=== PATIENT | female | born 1950 | race Caucasian/White ===

== ENCOUNTER → 2016-02-16 | Outpatient (CLI) | payer OTHER ==
--- NOTE | 2016-02-17 09:37 | MM ---
Reason for exam: screening (asymptomatic). Last mammogram was performed 1 year and 2 months ago. History: Patient is postmenopausal, has history of high-risk lesion on a previous biopsy at age 59, and is nulliparous. Family history of breast cancer in paternal grandmother at age 70. Benign left breast needle localization of the left breast, August 29, 2010. Benign left breast needle localization of the left breast, August 29, 2010. High risk left mammotome panel of the left breast, August 12, 2010. High risk left mammotome panel of the left breast, July 13, 2010. Took hormonal contraceptives for 1 month beginning at age 39. Physical Findings: A clinical breast exam by your physician is recommended on an annual basis and results should be correlated with mammographic findings. MG Screening Mammo w CAD Bilateral CC and MLO view(s) were taken. Prior study comparison: December 02, 2014, bilateral MG screening mammo w CAD. September 30, 2013, bilateral MG screening mammo w CAD. July 16, 2012, CAD bilateral diagnostic mammogram. June 22, 2010, bilateral digital screening mammo w/CAD. There are scattered fibroglandular densities. Some post surgical deformity along the inferior medial left breast. No significant changes when compared with prior studies. ASSESSMENT: Negative, BI-RAD 1 RECOMMENDATION: Routine screening mammogram of both breasts in 1 year.
== END ==
LOC: RADMAMWWP 16:46
PROVIDERS: ATTEND Internal Medicine
DX: Z12.31 Encounter for screening mammogram for malignant neoplasm of breast (principal)

== ENCOUNTER → 2017-04-26 | Outpatient (CLI) | payer OTHER ==
--- NOTE | 2017-04-27 13:38 | MM ---
Reason for exam: screening (asymptomatic). Last mammogram was performed 1 year and 2 months ago. History: Patient is postmenopausal, has history of high-risk lesion on a previous biopsy at age 59, and is nulliparous. Family history of breast cancer in paternal grandmother at age 70. Benign left breast needle localization of the left breast, August 29, 2010. Benign left breast needle localization of the left breast, August 29, 2010. High risk left mammotome panel of the left breast, August 12, 2010. High risk left mammotome panel of the left breast, July 13, 2010. Took hormonal contraceptives for 1 month beginning at age 39. Physical Findings: A clinical breast exam by your physician is recommended on an annual basis and results should be correlated with mammographic findings. MG Screening Mammo w CAD Bilateral CC and MLO view(s) were taken. Prior study comparison: February 16, 2016, bilateral MG screening mammo w CAD. December 02, 2014, bilateral MG screening mammo w CAD. There are scattered fibroglandular densities. No significant changes when compared with prior studies. ASSESSMENT: Benign, BI-RAD 2 RECOMMENDATION: Routine screening mammogram of both breasts in 1 year.
== END ==
LOC: RADMAMWWP 15:12
PROVIDERS: ATTEND Internal Medicine
DX: Z12.31 Encounter for screening mammogram for malignant neoplasm of breast (principal)
CPT/HCPCS: 77067

== ENCOUNTER → 2017-09-03 | Outpatient (CLI) | payer BC, OTHER ==
--- NOTE | 2017-09-03 13:40 | XR ---
EXAMINATION TYPE: XR chest 2V DATE OF EXAM: 09/03/2017 COMPARISON: 03/22/2015 TECHNIQUE: PA and lateral views submitted. HISTORY: Fever FINDINGS: The lungs are clear and there is no pneumothorax, pleural effusion, or focal pneumonia. Hyperinflat ion lungs. Hypertrophic and degenerative change of the spine with scoliotic curvature. Calcification right hilum stable. No overt failure IMPRESSION: 1. No acute process.
--- NOTE | 2017-09-03 13:58 | US ---
EXAMINATION TYPE: US kidneys/renal and bladder DATE OF EXAM: 09/03/2017 COMPARISON: NONE CLINICAL HISTORY: R31.9 Hematuria. Intermittent right flank pain, microscopic hematuria EXAM MEASUREMENTS: Right Kidney: 10.6 x 3.6 x 5.1 cm Left Kidney: 11.2 x 4.7 x 5.2 cm Right Kidney: no evidence of hydronephrosis Left Kidney: no evidence of hydronephrosis Bladder: appear wnl Bilateral Jets seen: yes There is no evidence for hydronephrosis at this point in time. No nephrolithiasis is seen. No patricia s are identified. The urinary bladder is anechoic. Bilateral ureteral jets are seen. IMPRESSION: Unremarkable study. If symptoms persist consider CT urogram evaluation.
== END | disposition home or self-care (01) ==
LOC: RADUSWWP 12:42
PROVIDERS: ATTEND Internal Medicine
DX: R31.9 Hematuria, unspecified (principal); R50.9 Fever, unspecified
CPT/HCPCS: 71046; 76770

== ENCOUNTER → 2018-05-07 | Outpatient (CLI) | payer MEDICARE, BC ==
--- NOTE | 2018-05-09 11:34 | MM ---
Reason for exam: screening (asymptomatic). Last mammogram was performed 1 year ago. History: Patient is postmenopausal, has history of high-risk lesion on a previous biopsy at age 59, and is nulliparous. Family history of breast cancer in paternal grandmother at age 70. Benign left breast needle localization of the left breast, August 29, 2010. Benign left breast needle localization of the left breast, August 29, 2010. High risk left mammotome panel of the left breast, August 12, 2010. High risk left mammotome panel of the left breast, July 13, 2010. Took hormonal contraceptives for 1 month beginning at age 39. Physical Findings: A clinical breast exam by your physician is recommended on an annual basis and results should be correlated with mammographic findings. MG 3D Screening Mammo W/Cad Bilateral CC and MLO view(s) were taken. Prior study comparison: April 26, 2017, bilateral MG screening mammo w CAD. February 16, 2016, bilateral MG screening mammo w CAD. No significant changes when compared with prior studies. ASSESSMENT: Benign, BI-RAD 2 RECOMMENDATION: Routine screening mammogram of both breasts in 1 year.
== END | disposition home or self-care (01) ==
LOC: RADMAMWWP 11:11
PROVIDERS: ATTEND Internal Medicine
DX: Z12.31 Encounter for screening mammogram for malignant neoplasm of breast (principal)
CPT/HCPCS: 77063; 77067

== ENCOUNTER → 2019-10-27 | Outpatient (CLI) | payer MEDICARE ==
--- NOTE | 2019-10-29 09:43 | MM ---
Reason for exam: screening (asymptomatic). Last mammogram was performed 1 year and 6 months ago. History: Patient is postmenopausal, has history of high-risk lesion on a previous biopsy at age 59, and is nulliparous. Family history of breast cancer in paternal grandmother at age 70. Benign left breast needle localization of the left breast, August 29, 2010. Benign left breast needle localization of the left breast, August 29, 2010. High risk left mammotome panel of the left breast, August 12, 2010. High risk left mammotome panel of the left breast, July 13, 2010. Took hormonal contraceptives for 1 month beginning at age 39. Physical Findings: A clinical breast exam by your physician is recommended on an annual basis and results should be correlated with mammographic findings. MG Screening Mammo w CAD Bilateral CC and MLO view(s) were taken. Prior study comparison: May 07, 2018, bilateral MG 3d screening mammo w/cad. April 26, 2017, bilateral MG screening mammo w CAD. There are scattered fibroglandular densities. Focal asymmetry left breast. No significant changes when compared with prior studies. ASSESSMENT: Benign, BI-RAD 2 RECOMMENDATION: Routine screening mammogram of both breasts in 1 year.
== END | disposition home or self-care (01) ==
LOC: RADMAMWWP 11:20
PROVIDERS: ATTEND Internal Medicine
DX: Z12.31 Encounter for screening mammogram for malignant neoplasm of breast (principal)
CPT/HCPCS: 77067

== ENCOUNTER → 2020-11-02 | Outpatient (CLI) | payer MEDICARE ==
--- NOTE | 2020-11-04 11:36 | MM ---
Reason for exam: screening (asymptomatic). Last mammogram was performed 1 year ago. History: Patient is postmenopausal, has history of high-risk lesion on a previous biopsy at age 59, and is nulliparous. Family history of breast cancer in paternal grandmother at age 70. Benign left breast needle localization of the left breast, August 29, 2010. Benign left breast needle localization of the left breast, August 29, 2010. High risk left mammotome panel of the left breast, August 12, 2010. High risk left mammotome panel of the left breast, July 13, 2010. Took hormonal contraceptives for 1 month beginning at age 39. Physical Findings: A clinical breast exam by your physician is recommended on an annual basis and results should be correlated with mammographic findings. MG Screening Mammo w CAD Bilateral CC, MLO, and XCCL view(s) were taken. Prior study comparison: October 27, 2019, bilateral MG screening mammo w CAD. May 07, 2018, bilateral MG 3d screening mammo w/cad. Focal asymmetry left upper outer quadrant, stable. No significant changes when compared with prior studies. ASSESSMENT: Benign, BI-RAD 2 RECOMMENDATION: Routine screening mammogram of both breasts in 1 year.
== END | disposition home or self-care (01) ==
LOC: RADMAMWWP 15:29
PROVIDERS: ATTEND Internal Medicine
DX: Z12.31 Encounter for screening mammogram for malignant neoplasm of breast (principal)
CPT/HCPCS: 77067

== ENCOUNTER → 2021-02-22 | Outpatient (CLI) | payer MEDICARE ==
--- NOTE | 2021-02-22 15:05 | XR ---
EXAM TYPE: LUMBAR SPINE X RAY SERIES COMPARISON: NONE HISTORY: Pain TECHNIQUE: 4 views are submitted. FINDINGS: Alignment is anatomic. The pedicles are intact. Diffuse osteopenia with a mild to moderate superior endplate compression fracture L3. Facet arthropathy at levels L2-S1 with multilevel degenerative disc disease. IMPRESSION: 1. Multilevel moderate degenerative disc disease with multilevel facet arthropathy most marked at L5- S1. Suspect foraminal encroachment at multiple levels. 2. There is a age-indeterminate mild to moderate superior endplate compression fracture of L3. Correl ate clinically and with MRI as clinically warranted.
== END | disposition home or self-care (01) ==
LOC: RADXRMAIN 14:25
PROVIDERS: ATTEND Internal Medicine
DX: M47.897 Other spondylosis, lumbosacral region (principal)
CPT/HCPCS: 72110

== ENCOUNTER → 2021-03-30 | Outpatient (CLI) | payer MEDICARE ==
--- NOTE | 2021-03-30 17:42 | BD ---
EXAMINATION TYPE: Axial Bone Density DATE OF EXAM: 03/30/2021 COMPARISON: 06/22/2010 CLINICAL HISTORY: Height: 65 IN Weight: 231 LBS FRAX RISK QUESTIONS: Current Tobacco Use: YES RISK FACTORS HISTORY OF: Active: MODERATE Postmenopausal woman: AGE 57 Lost more than 2 inches in height since high school: YES 3 " MEDICATIONS: Thyroid Medications: YES Which medication: Levothyroxine How Lon+ YEARS Additional Medications: VIT D, LEVOTHYROXINE,STATIN, DIURETIC, BLOOD PRESSURE MED EXAM MEASUREMENTS: Bone mineral densitometry was performed using the [employer] System. Bone mineral density as measured about the Lumbar spine is: ----- L1-L4(G/cm2): 1.151 T Score Values are as follows: ----- L2: -1.6 ----- L3: 0.2 ----- L4: 1.0 ----- L1-L4: -0.2 Bone mineral density has: Increased 3.8% since study of: 06/22/2010 Bone mineral density about the R hip (g/cm2): 0.800 Bone mineral density about the L hip (g/cm2): 0.802 T Score values are as follows: -----R Neck: -1.7 -----L Neck: -1.7 -----R Total: -1.1 -----L Total: -0.9 Bone mineral density has: Decreased -11.2% since study of: 06/22/2010 IMPRESSION: Osteopenia (T Score between -2.5 and -1). There is slightly increased risk of fracture and the patient may be considered for treatment. Re-Screen 2-5 years. NOTE: T-SCORE=SD OF THE YOUNG ADULT MEAN.
== END | disposition home or self-care (01) ==
LOC: RADBDWWP 14:44
PROVIDERS: ATTEND Internal Medicine
DX: M85.80 Other specified disorders of bone density and structure, unspecified site (principal); Z78.0 Asymptomatic menopausal state
CPT/HCPCS: 77080

== ENCOUNTER → 2021-11-29 | Outpatient (CLI) | payer MEDICARE ==
--- NOTE | 2021-11-30 17:33 | MM ---
Reason for Exam: Screening (asymptomatic). Last mammogram was performed 1 year(s) and 1 month(s) ago. Patient History: Menarche at age 12. Patient has no children. Postmenopausal. Hormonal Contraceptives for 1 month from age 39 until age 39. 08/29/2010, Benign Excisional Biopsy on the left side. 08/29/2010, Benign Excisional Biopsy on the left side. 08/12/2010, High risk Core Biopsy on the left side. 07/13/2010, High risk Core Biopsy on the left side. Paternal grandmother had breast cancer, age 70. Risk Values: Ibis 5 year model risk: 3.1%. NCI Lifetime model risk: 10.0%. Prior Study Comparison: 05/07/2018 Bilateral Screening Mammogram, [facility]. 10/27/2019 Bilateral Screening Mammogram, [facility]. 11/02/2020 Bilateral Screening Mammogram, [facility]. Tissue Density: There are scattered fibroglandular densities. Findings: Analyzed By CAD. Pattern appears stable. No suspicious groups of microcalcifications, spiculated or lobular masses, architectural distortion or other secondary signs of malignancy are mammographically apparent. Overall Assessment: Benign, BI-RAD 2 Management: Screening Mammogram of both breasts in 1 year. A negative mammogram report should not preclude additional follow up of suspicious palpable abnormalities. Patient should continue monthly self breast exam. A clinical breast exam by your physician is recommended on an annual basis and results should be correlated with mammographic findings. Electronically signed and approved by: Keyon Royal D.O. Radiologis
== END | disposition home or self-care (01) ==
LOC: RADMAMWWP 16:44
PROVIDERS: ATTEND Internal Medicine
DX: Z12.31 Encounter for screening mammogram for malignant neoplasm of breast (principal)
CPT/HCPCS: 77067

== ENCOUNTER 2022-05-03 10:10 | Day surgery (SDC) | payer MEDICARE ==
[2022-05-01 14:34] VITALS: BMI 35.4
[~2022-05-03 10:10] MED LIST: LACTATED RINGERS 1,000 ML IV SCH
[2022-05-03 10:46] VITALS: TEMP 97.1
[2022-05-03] MEDS ORDERED: PROPOFOL 10 MG/ML 20 ML VIAL IV ONE (12:28)
[2022-05-03] MEDS ORDERED: LIDOCAINE 2% INJ 20 MG/ML (2 ML VIAL) ONE (12:28)
--- NOTE | 2022-05-03 12:41 | P.PCN ---
Date of Procedure: 05/03/22 Procedure(s) Performed: BRIEF HISTORY: Patient is a 71-year-old pleasant white female scheduled for an elective colonoscopy as a part of screening for colon cancer/positive cologuard. PROCEDURE PERFORMED: Colonoscopy with biopsy. PREOPERATIVE DIAGNOSIS: Screening for colon cancer/positive cologuard.. IV sedation per Anesthesia. PROCEDURE: After informed consent was obtained, the patient, was brought into the endoscopy unit. IV sedation was administered by Anesthesia under continuous monitoring. Digital rectal examination was normal. Initially the Olympus CF-160 flexible video colonoscope was then inserted in the rectum, gradually advanced into the cecum without any difficulty. Careful examination was performed as the scope was gradually being withdrawn. Ileocecal valve and the appendiceal orifice were visualized and appeared normal. Prep was excellent. Mucosa of the cecum, as a millimeters sessile polyp removed by cold biopsy. In the ascending colon there were 2 polyps measuring 5 mm and 5 mm in size removed by cold biopsy.. In the transverse colon there was another 3 mm sessile polyp removed by cold biopsy. ascending colon, transverse colon, descending colon, sigmoid colon, and rectum appeared normal. Retroflexion was performed in the rectum and no lesions were seen. The patient tolerated the procedure well. IMPRESSION: 3 Millimeters cecal polyp status post cold biopsy 3 mm and 5 mm ascending colon polyp status post cold biopsy 3 mm transverse colon polyp status post cold biopsy RECOMMENDATIONS: Findings of this examination were discussed with the patient as well as a family. She was advised to follow with the biopsy results. If the biopsy reveals adenoma she can have a repeat colonoscopy in 3 years..
[2022-05-03] MEDS ORDERED: LACTATED RINGERS 1,000 ML IV ONE (12:46)
[2022-05-03 12:49] VITALS: RESP 16
[2022-05-03 13:02] VITALS: BP 118/69; PULSE 63
== END 2022-05-03 13:18 | disposition home or self-care (01) ==
LOC: ORWHC2ENDO 10:10
PROVIDERS: ATTEND Internal Medicine Gastroenterology
DX: D12.0 Benign neoplasm of cecum (principal); D12.2 Benign neoplasm of ascending colon; I10 Essential (primary) hypertension; E78.5 Hyperlipidemia, unspecified; E07.9 Disorder of thyroid, unspecified; F17.200 Nicotine dependence, unspecified, uncomplicated; Z79.890 Hormone replacement therapy; Z79.899 Other long term (current) drug therapy
CPT/HCPCS: 88305; 45380; J2704; J2001

== ENCOUNTER → 2022-11-30 | Outpatient (CLI) | payer MEDICARE ==
--- NOTE | 2022-11-30 11:42 | MM ---
Reason for Exam: Screening (asymptomatic). Last screening mammogram was performed 12 month(s) ago. Patient History: Menarche at age 12. Patient has no children. Postmenopausal. Hormonal Contraceptives for 1 month from age 39 until age 39. 08/29/2010, Benign Excisional Biopsy on the left side. 08/29/2010, Benign Excisional Biopsy on the left side. 08/12/2010, High risk Core Biopsy on the left side. 07/13/2010, High risk Core Biopsy on the left side. Paternal grandmother had breast cancer, age 70. Maternal aunt had breast cancer. Risk Values: Ibis 5 year model risk: 3.1%. NCI Lifetime model risk: 9.5%. Prior Study Comparison: 02/16/2016 Bilateral Screening Mammogram, [facility]. 04/26/2017 Bilateral Screening Mammogram, [facility]. 05[facility]07/2018 Bilateral Screening Mammogram, [facility]. 10/27/2019 Bilateral Screening Mammogram, [facility]. 11/02/2020 Bilateral Screening Mammogram, [facility]. 11/29/2021 Bilateral MG screening mammo w CAD, [facility]. Tissue Density: There are scattered fibroglandular densities. Findings: Analyzed By CAD. There is no suspicious group of microcalcifications or new suspicious mass. Overall Assessment: Negative, BI-RAD 1 Management: Screening Mammogram of both breasts in [address] [facility] will attempt to contact patient to return for supplemental views and ultrasound if indicated. Patient should continue monthly self-breast exams. A clinical breast exam by your physician is recommended on an annual basis. This exam should not preclude additional follow-up of suspicious palpable abnormalities. Note on Ibis scores and lifetime risk: 1. A Ibis score greater than 3% is considered moderate risk. If this is the case, consider specialist referral to assess eligibility for a risk reducing agent. 2. If overall lifetime risk for the development of breast cancer is 20% or higher, the patient may qualify for future screening with alternating mammogram and breast MRI. Electronically signed and approved by: Milad Lizarraga DO
== END | disposition home or self-care (01) ==
LOC: RADMAMWWP 09:15
PROVIDERS: ATTEND Internal Medicine
DX: Z12.31 Encounter for screening mammogram for malignant neoplasm of breast (principal); Z78.0 Asymptomatic menopausal state; Z80.3 Family history of malignant neoplasm of breast
CPT/HCPCS: 77063; 77067

== ENCOUNTER 2023-04-18 12:47 | Inpatient (IN) | payer MEDICARE ==
[2023-04-18] MEDS: MORPHINE SULFATE 2 MG/ML SYRINGE IVP STA (13:38)
[2023-04-18 13:39] LABS: Basophils # (A) 0.1 k/uL (0-0.2); Basophils % (A) 1 %; Eosinophils # (A) 0.3 k/uL (0-0.7); Eosinophils % (A) 2 %; HCT 43.1 % (34.0-46.0); HGB 14.7 gm/dL (11.4-16.0); Lymphocytes # (A) 1.7 k/uL (1.0-4.8); Lymphocytes % (A) 12 %; Monocytes # (A) 0.6 k/uL (0-1.0); Monocytes % (A) 4 %; Neutrophils # (A) 11.4 k/uL (1.3-7.7); Neutrophils % (A) 79 %; Platelet Count 283 k/uL (150-450); RBC 4.74 m/uL (3.80-5.40); WBC 14.4 k/uL (3.8-10.6)
[2023-04-18 13:55] LABS: African American GFR (CKD) >90 (>60 ml/min/1.73 sqM); Anion Gap 6 mmol/L; Blood Urea Nitrogen 9 mg/dL (7-17); Calcium 9.2 mg/dL (8.4-10.2); Carbon Dioxide 25 mmol/L (22-30); Chloride 101 mmol/L (98-107); Glucose 118 mg/dL (74-99); Non-African American GFR(CKD) 90 (>60 ml/min/1.73 sqM); Potassium 4.4 mmol/L (3.5-5.1); Sodium 132 mmol/L (137-145)
--- NOTE | 2023-04-18 14:08 | ED ---
General Adult HPI - General Chief complaint: Fall Stated complaint: fall Time Seen by Provider: 04/18/23 13:10 Source: patient, EMS, RN notes reviewed, old records reviewed Mode of arrival: EMS Limitations: no limitations - History of Present Illness Initial comments: Patient is a 72-year-old female with past medical history that is relatively unremarkable who presents emergency department complaining of a fall. Has a history of hyperlipidemia, hypertension, thyroid disease. Got her left foot stuck on a shopping cart at [employer] which caused her to fall onto her left side landing on her left hip and somewhat struck her head on the ground. Did not lose consciousness. Is not on blood thinners. No blurry vision. He is requesting to take off her cervical collar. Denies any chest pain, abdominal pain, nausea, vomiting. Denies any urinary complaints. States she did not faint but it was a mechanical fall. Presents for further evaluation over concern for left hip, buttock, thigh pain. - Related Data Home Medications Medication Instructions Recorded Confirmed Atorvastatin [Lipitor] 10 mg PO DAILY 05/01/22 04/18/23 Levothyroxine Sodium [Synthroid] 100 mcg PO DAILY 05/01/22 04/18/23 atenoloL [Tenormin] 25 mg PO DAILY 05/01/22 04/18/23 hydroCHLOROthiazide [Hydrodiuril] 25 mg PO DAILY 05/01/22 04/18/23 Allergies Allergy/AdvReac Type Severity Reaction Status Date / Time No Known Allergies Allergy Verified 04/18/23 13:35 Review of Systems ROS Statement: Those systems with pertinent positive or pertinent negative responses have been documented in the HPI. Review of Systems: CONST: Denies fever EYES: Denies blurry vision ENT: Denies nasal congestion C/V: Denies Chest pain RESP: Denies shortness of breath GI: Denies abdominal pain : Denies dysuria SKIN: Denies rash. MSK: Endorses joint pain NEURO: Denies headache ROS Other: All systems not noted in ROS Statement are negative. Past Medical History Past Medical History: Hyperlipidemia, Hypertension, Thyroid Disorder Additional Past Medical History / Comment(s): positive cologuard History of Any Multi-Drug Resistant Organisms: None Reported Additional Past Surgical History / Comment(s): left partial mastectomy-be nign,oral surgery-impacted wisdom tooth removal Past Anesthesia/Blood Transfusion Reactions: No Reported Reaction Additional Past Anesthesia/Blood Transfusion Reaction / Comment(s): no hx blood transfusion Past Psychological History: No Psychological Hx Reported Smoking Status: Current every day smoker Past Alcohol Use History: Occasional Past Drug Use History: None Reported - Past Family History Mother Family Medical History: Cancer Father Family Medical History: Cancer Brother(s) Family Medical History: Cancer Additional Family Medical History / Comment(s): leukemia General Exam - General Exam Comments Initial Comments: General: Appears in no acute distress. HEAD: Normal with no signs of head trauma. No Barron sign. Negative raccoon eyes. EYES: PERRLA, EOMI, conjunctiva normal, no discharge. Pulls are 3 mm and equal bilaterally. ENT: Hearing grossly intact, normal oropharynx. RESPIRATORY: Clear breath sounds bilaterally. No wheezes, rales, or rhonchi. C/V: Regular rate and rhythm. S1 and S2 auscultated, no edema, peripheral pulses 2+ and intact throughout ABD: Abd is soft, nontender, nondistended EXT: Normal range of motion, no obvious deformity pelvis is stable. Tenderness to palpation over the posterior left thigh, left hip, left buttock. No midline cervical, thoracic, lumbar spine tenderness to palpation. No step-offs or deformities of the spine. Patient has removed her cervical collar. SKIN: No rashes or lesions observed on exposed skin. NEURO: Alert and oriented x 4. GCS of 15. Limitations: no limitations Course Vital Signs 04/18/23 04/18/23 04/18/23 13:32 15:59 17:00 Temperature 97.4 F L 97.3 F L 98.1 F Pulse Rate 73 73 76 Respiratory 18 18 18 Rate Blood Pressure 116/71 96/61 122/76 O2 Sat by Pulse 95 95 95 Oximetry Medical Decision Making - Medical Decision Making Was pt. sent in by a medical professional or institution (, PA, HOTEL OPERATION MANAGER, urgent care, hospital, or [facility]...) When possible be specific @ -No Did you speak to anyone other than the patient for history (EMS, parent, family, police, friend...)? What history was obtained from this source @ -No Did you review nursing and triage notes (agree or disagree)? Why? @ -I reviewed and agree with nursing and triage notes Were old charts reviewed (outside hosp., previous admission, EMS record, old EKG, old radiological studies, urgent care reports/EKG's, [facility] records)? Report findings @ -Old charts reviewed Differential Diagnosis (chest pain, altered mental status, abdominal pain women, abdominal pain men, vaginal bleeding, weakness, fever, dyspnea, syncope, h eadache, dizziness, GI bleed, back pain, seizure, CVA, palpatations, mental health, musculoskeletal)? @ -Differential Musculoskeletal Muscular strain, contusion, ligament sprain, fracture, arthritis, septic arthritis, bursitis, cellulitis, muscle spasm, nerve compression, DVT, arterial occlusion, herpes zoster, electrolyte abnormality, tumor.... This is not meant to be in all inclusive list EKG interpreted by me (3pts min.). @ -None done X-rays interpreted by me (1pt min.). @ -Chest x-ray, femur x-ray, pelvis x-ray, ankle x-ray negative for any traumatic injury. CT interpreted by me (1pt min.). @ -CT brain, C-spine revealed no obvious acute intracranial process or cervical spine injury. Possible nodules in the lungs. CT of the pelvis revealed left superior and inferior pubic rami fractures as well as left sacral geovanny fracture. U/S interpreted by me (1pt. min.). @ -None done What testing was considered but not performed or refused? (CT, X-rays, U/S, labs)? Why? @ -None What meds were considered but not given or refused? Why? @ -None Did you discuss the management of the patient with other professionals (professionals i.e. , PA, HOTEL OPERATION MANAGER, lab, RT, psych nurse, healthcare social worker, librarian helper, teacher, campus safety officer, top case assembler)? Give summary @ -I discussed results with on-call orthopedics, FERDINAND Hardin as well as Dr. Jauregui who states that the injury was nonoperative. I did discuss with him that patient is not a safe discharge home due to living by herself and her need ing to be nonweightbearing. They were in agreement with being the consulting service however we both agree that it is reasonable to admit to medicine at this time as no surgery will be performed despite the trauma. I discussed this plan with the patient's PCP, Dr. Moon who accepted the admission. Was smoking cessation discussed for >3mins.? @ -No Was critical care preformed (if so, how long)? @ -No Were there social determinants of health that impacted care today? How? (Homelessness, low income, unemployed, alcoholism, drug addiction, transportation, low edu. Level, literacy, decrease access to med. care, correction, rehab)? @ -No Was there de-escalation of care discussed even if they declined (Discuss DNR or withdrawal of care, Hospice)? DNR status @ -No What co-morbidities impacted this encounter? (DM, HTN, Smoking, COPD, CAD, Cancer, CVA, ARF, Chemo, Hep., AIDS, mental health diagnosis, sleep apnea, morbid obesity)? @ -None Was patient admitted / discharged? Hospital course, mention meds given and route, prescriptions, significant lab abnormalities, going to OR and other pertinent info. @ -Patient presents for a mechanical fall from standing. No blood thinners. No loss of consciousness. Does not meet trauma activation criteria. We will obtain CT brain and C-spine due to her age as well as chest, pelvis, hip, femur x-rays. Patient was in agreement this plan. Basic labs will also be obtained as well as I will provide a small dose of morphine for the patient. She was in agreement this plan. Vital signs are within acceptable limits.Basic labs are within acceptable limits. Slight leukocytosis which is likely reactive. Patient's x-ray imaging negative for any traumatic injury. CT brain and C-spine also negative. Cervical collar removed. I discussed results with patient. She is still having issues with moving her left leg and bearing weight. She does live alone. Therefore we will obtain CT pelvis. She was in agreement this plan. She was given additional analgesia medications. CT pelvis revealed left superior and inferior pubic rami fractures as well as left alar fracture. Discussed results with the patient. She expressed understanding. I discussed results with on-call orthopedics, FERDINAND Hardin as well as Dr. Jauregui who states that the injury was nonoperative. I did discuss with him that patient is not a safe discharge home due to living by herself and her needing to be nonweightbearing. They were in agreement with being the consulting service however we both agree that it is reasonable to admit to medicine at this time as no surgery will be performed despite the trauma. I discussed this plan with the patient's PCP, Dr. Moon who accepted the admission. Patient has been nonweightbearing. Will continue with analgesia medications. Patient be admitted for possible placement as well as work with rehab. Undiagnosed new problem with uncertain prognosis? @ -No Drug Therapy requiring intensive monitoring for toxicity (Heparin, Nitro, Insulin, Cardizem)? @ -No Were any procedures done? @ -No Diagnosis/symptom? @ -Fall, left pubic rami fracture, left sacral fracture Acute, or Chronic, or Acute on Chronic? @ -Acute Uncomplicated (without systemic symptoms) or Complicated (systemic symptoms)? @ -Complicated Side effects of treatment? @ -None Exacerbation, Progression, or Severe Exacerbation] @ -No Poses a threat to life or bodily function? @ -Yes - Lab Data Result diagrams: 04/18/23 13:25 04/18/23 13:25 Lab Results 04/18/23 04/18/23 Range/Units 13:25 13:25 WBC 14.4 H (3.8-10.6) k/uL RBC 4.74 (3.80-5.40) m/uL Hgb 14.7 (11.4-16.0) gm/dL Hct 43.1 (34.0-46.0) % MCV 91.0 (80.0-100.0) fL MCH 31.0 (25.0-35.0) pg MCHC 34.0 (31.0-37.0) g/dL RDW 13.0 (11.5-15.5) % Plt Count 283 (150-450) k/uL MPV 8.0 Neutrophils % 79 % Lymphocytes % 12 % Monocytes % 4 % Eosinophils % 2 % Basophils % 1 % Neutrophils # 11.4 H (1.3-7.7) k/uL Lymphocytes # 1.7 (1.0-4.8) k/uL Monocytes # 0.6 (0-1.0) k/uL Eosinophils # 0.3 (0-0.7) k/uL Basophils # 0.1 (0-0.2) k/uL Sodium 132 L (137-145) mmol/L Potassium 4.4 (3.5-5.1) mmol/L Chloride 101 (98-107) mmol/L Carbon Dioxide 25 (22-30) mmol/L Anion Gap 6 mmol/L BUN 9 (7-17) mg/dL Creatinine 0.67 (0.52-1.04) mg/dL Est GFR (CKD-EPI)AfAm >90 (>60 ml/min/1.73 sqM) Est GFR (CKD-EPI)NonAf 90 (>60 ml/min/1.73 sqM) Glucose 118 H (74-99) mg/dL Calcium 9.2 (8.4-10.2) mg/dL Disposition Clinical Impression: Fall, Sacral fracture, Fracture of pubic ramus, Debility Disposition: ADMITTED IP TO THIS HOSP Condition: Stable Time of Disposition: 17:40
--- NOTE | 2023-04-18 14:35 | CT ---
EXAMINATION TYPE: CT brain alvinoine wo con DATE OF EXAM: 04/18/2023 COMPARISON: None available. HISTORY: Fall. CT DLP: 1556.7 mGycm Automated exposure control for dose reduction was used. TECHNIQUE: CT scan of the head and cervical spine are performed without contrast. FINDINGS: There is no acute intracranial hemorrhage, mass effect, or midline shift identified. The ventricles and sulci are within normal limits in size. The globes are intact and the visualized sin uses are clear. Cervical spine is visualized in its entirety from C1 through upper thoracic levels and demonstrates s atisfactory alignment without evidence of acute fracture or dislocation. Prevertebral soft tissue ap pears within normal limits. The C1-C2 articulation is unremarkable. Multilevel degenerative disc, f acet and uncovertebral joint changes are [id number] throughout the spine IMPRESSION: 1. There is no acute fracture or dislocation evident in the cervical spine. 2. No acute intracranial hemorrhage, mass effect, or midline shift is seen. 3. Mild but areas of nodularity within the right upper lobe are likely inflammatory or due to an atyp ical infectious process. Minimal findings of this are also seen in the left upper lobe. A follow-up i n 3 months is recommended.
--- NOTE | 2023-04-18 15:25 | XR ---
EXAMINATION TYPE: XR chest 1V portable DATE OF EXAM: 04/18/2023 COMPARISON: NONE HISTORY: Fall. TECHNIQUE: Single frontal view of the chest is obtained. FINDINGS: There is no focal air space opacity, pleural effusion, or pneumothorax seen. The cardiac silhouette size is within normal limits. The osseous structures are intact. IMPRESSION: No acute process.
--- NOTE | 2023-04-18 15:29 | XR ---
Three-view left ankle. DATE: 04/18/2023. COMPARISON: None available. Clinical history: Fall. FINDINGS: There is no fracture, subluxation or dislocation. Ankle mortise is well aligned. The joint spaces and soft tissues are within normal limits. There is a small plantar calcaneal heel spur. IMPRESSION: No acute osseous abnormality.
--- NOTE | 2023-04-18 15:29 | XR ---
EXAMINATION TYPE: XR Hip LT and AP Pelvis, XR femur LT DATE OF EXAM: 04/18/2023 COMPARISON: NONE HISTORY: Fall. TECHNIQUE: A single AP view of the pelvis is obtained. Two views of the hip are obtained. FINDINGS: There is no fracture, subluxation or dislocation. The joint. Joint spaces preserved. IMPRESSION: No acute osseous abnormalities.
[2023-04-18] MEDS: ONDANSETRON 4 MG/2 ML VIAL IVP STA (15:59)
[2023-04-18] MEDS: SODIUM CHLORIDE 0.9% 1,000 ML IV STA (15:59)
[2023-04-18] MEDS: MORPHINE SULFATE 4 MG/ML SYRINGE IVP STA (16:01)
[2023-04-18] MEDS: KETOROLAC 15 MG/ML 1 ML VIAL IVP STA (16:02)
--- NOTE | 2023-04-18 16:53 | CT ---
EXAMINATION TYPE: CT pelvis wo con CT DLP: 765.1 mGycm, Automated exposure control for dose reduction was used. DATE OF EXAM: 04/18/2023 4:29 PM COMPARISON: Same day radiographs. CLINICAL INDICATION:Female, 72 years old with history of left pelvis pain, difficulty ambulated; Lt h ip pain after fall today. TECHNIQUE: Axial CT pelvis wo con;Sagittal and coronal reformats were created on a separate workstat ion. Contrast used: mL of , (none if empty) Oral contrast used: without Oral Contrast (none if empty) FINDINGS: BLADDER: Unremarkable REPRODUCTIVE: Unremarkable. ABDOMEN & PELVIS STOMACH AND BOWEL: No evidence of bowel obstruction. PERITONEUM/RETROPERITONEUM: No evidence of pneumoperitoneum or free fluid. VASCULATURE: No evidence of aortic aneurysm. MUSCULOSKELETAL: Acute fracture of the left inferior pubic ramus with minimal displacement and superi or pubic ramus near the acetabulum. Suprapubic ramus fracture extends into the left hip joint. Fractu re line to the sacrum on the left is also present series 203 image 71 LYMPH NODES: No gross evidence for lymphadenopathy. SOFT TISSUE/ABDOMINAL WALL: Unremarkable IMPRESSION: 1. Left superior and inferior pubic ramus fractures. The left superior pubic ramus fracture is intra -articular. 2. Left sacral alar fracture.
[2023-04-18] MEDS ORDERED: ACETAMINOPHEN TAB 325 MG TAB PO PRN (17:53)
[2023-04-18] MEDS ORDERED: NALOXONE 0.4 MG/ML 1 ML VIAL IV PRN (17:53)
[2023-04-18] MEDS: MORPHINE SULFATE 4 MG/ML SYRINGE IV PRN (20:32)
[2023-04-19] MEDS: HEPARIN SODIUM,PORCINE 5,000 UNIT/ML 1 ML VIAL SQ SCH (01:02)
[2023-04-19] MEDS: KETOROLAC 15 MG/ML 1 ML VIAL IVP PRN (01:03)
[2023-04-19] MEDS: LEVOTHYROXINE 100 MCG TAB PO SCH (06:21)
[2023-04-19] MEDS: ONDANSETRON 4 MG/2 ML VIAL IVP PRN (09:17)
[2023-04-19] MEDS: hydroCHLOROthiazide 25 MG TAB PO SCH (09:17)
[2023-04-19] MEDS: atenoloL 25 MG TAB PO SCH (09:17)
[2023-04-19] MEDS: ATORVASTATIN 10 MG TAB PO SCH (09:18)
--- NOTE | 2023-04-19 09:20 | P.CNOR ---
History of Present Illness - [facility] Consult date: 04/19/23 Requesting physician: Petey Garibay Consult reason: other (Fall, Sacral pain) History of present illness: History of Presenting Illness Patient is a pleasant 72-year-old female who presented to the ER via EMS after a fall. Patient reports that she was at the [employer] shopping and her left foot had gotten stuck on a shopping cart at [employer] causing her to fall onto her left side landing on her left hip. Patient does report she mildly had struck her head on the ground but did not lose consciousness. Patient denies any blood thinners. Patient is reporting left hip, buttock, and left thigh pain. Patient reports she is normally independent and lives alone. Patient does have a history of Hyperlipidemia, Hypertension, Thyroid Disorder. She denies any orthopedic history. CT of the pelvis taken on 04/18/2023 demonstrates a left acetabulum fracture with LC 1 fracture. Patient seen and examined this morning. Patient is sitting upright in bed. She does have complaint of an aching pain to her left buttock and posterior thigh, although she reports her pain is managed on current regimen. Patient denies any numbness or tingling to her lower extremities. She states she does not have a walker at home. Prescription has been placed in chart for standard walker. Informed patient that PT will be in to work with her today. Patient does verbalize that she is nervous about going home by herself. Informed patient that after PT evaluates her, she may have a discussion regarding possible rehab at discharge. Review of Systems Pertinent positives and negatives as discussed in HPI, a complete review of systems was performed and all other systems are negative. Physical Examination Inspection: Negative for any open fractures, ecchymosis, significant erythema/ulcers. Sensation: Sensation is equal, symmetric, bilaterally intact throughout the up per and lower extremities Palpation: Nontender to palpation throughout bilateral upper and lower ex tremities and throughout spine exam Range of motion: Patient does have full range of motion bilateral upper and lower extremities on exam Motor: 5/5 in all major motor groups in the bilateral upper and lower extremities Special tests: Negative Homans bilaterally. Negative Derrick bilaterally. Negative clonus bilaterally. Neurovascular: Radial pulse intact, 2+ bilaterally. Cap refill under 3 seconds in digits upper extremities. Assessment and Plan Fall from standing with trauma Left acetabulum fracture with LC 1 fracture. At this time we do not recommend any emergent/urgent orthopedic surgical inter vention. Patient may follow-up with Dr. Jauregui's office for further evaluation as needed. Orthopedics is signing off at this time. Please do not hesitate to contact us for any further questions. 2. Appreciate medical management 3. Pain management - Continue with current pain regimen, recommend oral pain management 4. GI prophylaxis - per medicine 5. DVT prophylaxis - Heparin. Patient will need to be discharged on a 4 week regimen of anticoagulant 6. PT/OT - Non-weightbearing on Left lower extremity 7. Appreciate consult I reviewed and discussed this case with my attending Dr. Jauregui, whom has reviewed this chart and films and is in agreement with assessment and plan of care as outlined above. I have personally seen and examined the patient, performed the documentation and the assessment and plan as written. Number of minutes spent on the visit: 20m Past Medical History Past Medical History: Hyperlipidemia, Hypertension, Thyroid Disorder Additional Past Medical History / Comment(s): positive cologuard (polyps) History of Any Multi-Drug Resistant Organisms: None Reported Additional Past Surgical History / Comment(s): left partial mastectomy- benign,oral surgery-impacted wisdom tooth removal, colonoscopy, endometriosis, D&C. Past Anesthesia/Blood Transfusion Reactions: No Reported Reaction Additional Past Anesthesia/Blood Transfusion Reaction / Comm: no hx blood transfusion Past Psychological History: No Psychological Hx Reported Smoking Status: Current every day smoker Past Alcohol Use History: Occasional Additional Past Alcohol Use History / Comment(s): approx, 10 cigarettes. Past Drug Use History: None Reported Additional Drug Use History / Comment(s): occasional drinks. - Past Family History Mother Family Medical History: Cancer Father Family Medical History: Cancer Brother(s) Family Medical History: Cancer Additional Family Medical History / Comment(s): leukemia Medications and Allergies Home Medications Medication Instructions Recorded Confirmed Type Atorvastatin [Lipitor] 10 mg PO DAILY 05/01/22 04/18/23 History Levothyroxine Sodium [Synthroid] 100 mcg PO DAILY 05/01/22 04/18/23 History atenoloL [Tenormin] 25 mg PO DAILY 05/01/22 04/18/23 History hydroCHLOROthiazide [Hydrodiuril] 25 mg PO DAILY 05/01/22 04/18/23 History Allergies Allergy/AdvReac Type Severity Reaction Status Date / Time No Known Allergies Allergy Verified 04/18/23 13:35 Results - Labs Labs: Abnormal Lab Results - Last 24 Hours (Table) 04/18/23 04/18/23 Range/Units 13:25 13:25 WBC 14.4 H (3.8-10.6) k/uL Neutrophils # 11.4 H (1.3-7.7) k/uL Sodium 132 L (137-145) mmol/L Glucose 118 H (74-99) mg/dL H & H 04/18/23 Range/Units 13:25 Hgb 14.7 (11.4-16.0) gm/dL Hct 43.1 (34.0-46.0) % Result Diagrams: 04/18/23 13:25 04/18/23 13:25
[2023-04-19 09:59] LABS: BUN/Creat Ratio 18.71 Ratio (12.00-20.00); Blood Urea Nitrogen 13.1 mg/dL (9.0-27.0); Calcium 9.2 mg/dL (8.7-10.3); Carbon Dioxide 23.9 mmol/L (21.6-31.8); Chloride 97 mmol/L (96-109); Glucose 110 mg/dL (70-110); Sodium 130 mmol/L (135-145)
[2023-04-19 11:47] LABS: Basophils # (A) 0.06 X 10*3/uL (0.00-0.10); Basophils % (A) 0.5 %; Eosinophils # (A) 0.18 X 10*3/uL (0.04-0.35); Eosinophils % (A) 1.4 %; HCT 37.9 % (37.2-46.3); HGB 12.6 g/dL (12.0-15.0); Lymphocytes # (A) 2.16 X 10*3/uL (0.90-5.00); Lymphocytes % (A) 16.2 %; MCH 30.6 pg (27.0-32.0); MCHC 33.2 g/dL (32.0-37.0); Monocytes # (A) 1.09 X 10*3/uL (0.20-1.00); Monocytes % (A) 8.2 %; NRBC Per 100 WBC 0 X 10*3/uL (0.00-0.01); Neutrophils # (A) 9.77 X 10*3/uL (1.80-7.70); Neutrophils % (A) 73.3 %; Platelet Count 247 X 10*3/uL (140-440); RBC 4.12 X 10*6/uL (4.10-5.20); RDW 13.2 % (11.5-14.5); WBC 13.31 X 10*3/uL (4.50-10.00)
[2023-04-19 13:29] VITALS: RESP 16
[2023-04-19 15:41] LABS: Appearance,Urine Clear (Clear); Bacteria,Urine Rare /hpf; Bilirubin,Urine Negative (Negative); Blood,Urine Moderate (Negative); Color,Urine Light Yellow; Glucose,Urine (UA) Negative (Negative); Ketones,Urine Negative (Negative); Leukocyte Esterase,Urine Large (Negative); Mucus,Urine Rare /hpf; Nitrite,Urine Negative (Negative); PH, Urine 6.5 (5.0-8.0); Protein,Urine Negative (Negative); RBC,Urine 45 /hpf (0-5); Specific Gravity,Urine 1.018 (1.001-1.035); Urobilinogen,Urine <2.0 mg/dL (<2.0); WBC,Urine 53 /hpf (0-5)
--- NOTE | 2023-04-19 17:04 | P.HPIM ---
History of Present Illness H&P Date: 04/19/23 Mulu Umana, is a 19-year-old female who presented to [facility] after sustaining a fall and complaining of pelvic pain, she was evaluated in emergency room and underwent CT of the pelvis which revealed left superior and inferior pubic ramus fractures and left sacral alar fracture, she was admitted to medical floor, orthopedic surgery consultation was requested. Past medical history is significant for history of hypertension history of hyperlipidemia, history of endometriosis and history of hypothyroidism. Surgical history is significant for left partial mastectomy for benign lesion, history of oral surgery, history of D&C. Social history patient lives at home she was able to ambulate and take care of her daily needs, she smokes a few cigarettes per day she denies any alcohol or illicit drug use. On review of system patient is complaining of pelvic pain otherwise she denies any complaints there is no fever or chills no headache or dizziness no chest pain no shortness of breath no cough no nausea or vomiting no abdominal pain no diarrhea and no urinary symptoms Past Medical History Past Medical History: Hyperlipidemia, Hypertension, Thyroid Disorder Additional Past Medical History / Comment(s): positive cologuard (polyps) History of Any Multi-Drug Resistant Organisms: None Reported Additional Past Surgical History / Comment(s): left partial mastectomy- benign,oral surgery-impacted wisdom tooth removal, colonoscopy, endometriosis, D&C. Past Anesthesia/Blood Transfusion Reactions: No Reported Reaction Additional Past Anesthesia/Blood Transfusion Reaction / Comment(s): no hx blood transfusion Past Psychological History: No Psychological Hx Reported Smoking Status: Current every day smoker Past Alcohol Use History: Occasional Additional Past Alcohol Use History / Comment(s): approx, 10 cigarettes. Past Drug Use History: None Reported Additional Drug Use History / Comment(s): occasional drinks. - Past Family History Mother Family Medical History: Cancer Father Family Medical History: Cancer Brother(s) Family Medical History: Cancer Additional Family Medical History / Comment(s): leukemia Medications and Allergies Home Medications Medication Instructions Recorded Confirmed Type Atorvastatin [Lipitor] 10 mg PO DAILY 05/01/22 04/18/23 History Levothyroxine Sodium [Synthroid] 100 mcg PO DAILY 05/01/22 04/18/23 History atenoloL [Tenormin] 25 mg PO DAILY 05/01/22 04/18/23 History hydroCHLOROthiazide [Hydrodiuril] 25 mg PO DAILY 05/01/22 04/18/23 History Allergies Allergy/AdvReac Type Severity Reaction Status Date / Time No Known Allergies Allergy Verified 04/18/23 13:35 Physical Exam Vitals: Vital Signs Temp Pulse Pulse Resp BP BP Pulse Ox 04/19/23 02:00 98.0 F 81 16 108/61 92 L 04/18/23 22:41 97.8 F 86 16 126/72 93 L 04/18/23 21:28 98.6 F 91 18 102/63 94 L 04/18/23 17:00 98.1 F 76 18 122/76 95 04/18/23 15:59 97.3 F L 73 18 96/61 95 04/18/23 13:32 97.4 F L 73 18 116/71 95 Intake and Output 04/18/23 04/18/23 04/19/23 14:59 22:59 06:59 Other: Voiding Method External Catheter Weight 104.326 kg 104.326 kg In general patient is alert and oriented x 3 in no distress HEENT head normocephalic and atraumatic Neck is supple no JVD no goiter no lymphadenopathy no carotid bruit Chest examination is clear to auscultation no crackles no wheezing Cardiac exam reveals regular heart sounds S1 and S2 no gallops no murmurs Abdomen is soft nontender no organomegaly with normal bowel sounds Extremity exam reveals no edema no cyanosis or clubbing Neurological examination reveals no gross focal deficits Results CBC & Chem 7: 04/19/23 05:03 04/19/23 05:03 Labs: Abnormal Lab Results - Last 24 Hours (Table) 04/18/23 04/18/23 Range/Units 13:25 13:25 WBC 14.4 H (3.8-10.6) k/uL Neutrophils # 11.4 H (1.3-7.7) k/uL Sodium 132 L (137-145) mmol/L Glucose 118 H (74-99) mg/dL Thrombosis Risk Factor Assmnt - Choose All That Apply Each Factor Represents 1 point: Medical pt on bed rest Each Risk Factor Represents 2 Points: Age 61-74 years, Patient confined to bed Each Risk Factor Represents 5 Points: Hip, pelvis, or leg fracture (< 1 month) Thrombosis Risk Factor Assessment Total Risk Factor Score: 10 Thrombosis Risk Factor Assessment Level: High Risk Assessment and Plan Plan: Left superior and inferior pubic ramus fractures, and left sacral alar fracture. Patient is admitted to medical floor orthopedic consultation requested Underlying history of hypertension Underlying history of hyperlipidemia Underlying history of hypothyroidism At this time patient is admitted to medical floor Home medications reviewed and reordered For DVT prophylaxis subcu heparin For GI prophylaxis Protonix Orthopedic consultation requested no surgical intervention recommended Patient will need transfer to rehab unit after this admission Will follow closely
[2023-04-20 02:24] VITALS: TEMP 97.8
[2023-04-20 08:34] VITALS: BP 121/71; PULSE 66
[2023-04-20 08:39] LABS: Basophils # (A) 0.06 X 10*3/uL (0.00-0.10); Basophils % (A) 0.5 %; Eosinophils # (A) 0.36 X 10*3/uL (0.04-0.35); Eosinophils % (A) 3.1 %; HCT 36.1 % (37.2-46.3); HGB 12.4 g/dL (12.0-15.0); Lymphocytes # (A) 1.85 X 10*3/uL (0.90-5.00); Lymphocytes % (A) 15.7 %; MCH 30.4 pg (27.0-32.0); MCHC 34.3 g/dL (32.0-37.0); MCV 88.5 FL (80.0-97.0); Mean Platelet Volume 10.7 FL (9.5-12.2); Monocytes # (A) 0.93 X 10*3/uL (0.20-1.00); Monocytes % (A) 7.9 %; NRBC Per 100 WBC 0 X 10*3/uL (0.00-0.01); Neutrophils # (A) 8.53 X 10*3/uL (1.80-7.70); Neutrophils % (A) 72.4 %; Platelet Count 219 X 10*3/uL (140-440); RBC 4.08 X 10*6/uL (4.10-5.20); WBC 11.78 X 10*3/uL (4.50-10.00)
[2023-04-20] MEDS: PANTOPRAZOLE 40 MG TABLET PO SCH (08:45)
[2023-04-20 08:57] LABS: ALT 15 U/L (8-44); AST 18 U/L (13-35); Albumin 3.5 g/dL (3.8-4.9); Albumin/Globulin Ratio 2.06 Ratio (1.60-3.17); Alkaline Phosphatase 69 U/L (41-126); BUN/Creat Ratio 13.86 Ratio (12.00-20.00); Blood Urea Nitrogen 9.7 mg/dL (9.0-27.0); Calcium 8.8 mg/dL (8.7-10.3); Carbon Dioxide 26.6 mmol/L (21.6-31.8); Chloride 92 mmol/L (96-109); Globulin 1.7 g/dL (1.6-3.3); Glucose 107 mg/dL (70-110); Potassium 4.5 mmol/L (3.5-5.5); Sodium 127 mmol/L (135-145); Total Bilirubin 0.5 mg/dL (0.3-1.2); Total Protein 5.2 g/dL (6.2-8.2)
[2023-04-20] MEDS ORDERED: HYDROcodone/APAP 10-325MG 1 EACH TAB PO PRN (10:00)
--- NOTE | 2023-04-20 10:09 | P.DS ---
Providers Date of admission: 04/18/23 17:53 Expected date of discharge: 04/20/23 Attending physician: Andrei Moon Consults: 04/18/23 17:53 Consult Physician Routine Consulting Provider: Wilfred Jauregui Consult Reason/Comments: sacral fractures, fall Do you want consulting provider notified?: Yes Primary care physician: Andrei Moon [facility] Course: Discharge diagnosis Left superior and inferior pubic ramus fractures, and left sacral alar fracture. Patient is admitted to medical floor orthopedic consultation requested. No surgical intervention planned at this time patient will follow-up outpatient with orthopedic services Underlying history of hypertension Underlying history of hyperlipidemia Underlying history of hypothyroidism Urinary tract infection. Patient started on Rocephin will DC on Ceftin Hyponatremia. Hydrochlorothiazide DC'd repeat labs at [facility] Hospital course Mulu Umana, is a 19-year-old female who presented to [facility] after sustaining a fall and complaining of pelvic pain, she was evaluated in emergency room and underwent CT of the pelvis which revealed left superior and inferior pubic ramus fractures and left sacral alar fracture, she was admitted to medical floor, orthopedic surgery consultation was requested. Past medical history is significant for history of hypertension history of hyperlipidemia, history of endometriosis and history of hypothyroidism. Surgical history is significant for left partial mastectomy for benign lesion, history of oral surgery, history of D&C. Social history patient lives at home she was able to ambulate and take care of her daily needs, she smokes a few cigarettes per day she denies any alcohol or illicit drug use. On review of system patient is complaining of pelvic pain otherwise she denies any complaints there is no fever or chills no headache or dizziness no chest pain no shortness of breath no cough no nausea or vomiting no abdominal pain no diarrhea and no urinary symptoms On 04/20/2023 patient alert and oriented 3. We'll add [place] for pain control. Patient also positive for urinary tract infection will start patient on Rocephin and DC patient on Ceftin upon discharge. Sodium also noted to be low at 127. Will DC patient's hydrochlorothiazide and follow-up outpatient. Patient will follow-up outpatient with orthopedic services for further management at this time patient denies chest pain or shortness of breath. Patient denies nausea vomiting or diarrhea. Patient denies any urinary burning or frequency Patient Condition at Discharge: Stable Plan - Discharge Summary Discharge Rx Participant: Yes New Discharge Prescriptions: New HYDROcodone/APAP 10-325MG [[place] 10-325] 1 each PO Q6HR PRN 3 Days #12 tab PRN Reason: Pain cefUROXime axetiL [Ceftin] 500 mg PO BID 7 Days #14 tab Continue Levothyroxine Sodium [Synthroid] 100 mcg PO DAILY Atorvastatin [Lipitor] 10 mg PO DAILY atenoloL [Tenormin] 25 mg PO DAILY Discontinued hydroCHLOROthiazide [Hydrodiuril] 25 mg PO DAILY Discharge Medication List Atorvastatin [Lipitor] 10 mg PO DAILY 05/01/22 [History] Levothyroxine Sodium [Synthroid] 100 mcg PO DAILY 05/01/22 [History] atenoloL [Tenormin] 25 mg PO DAILY 05/01/22 [History] HYDROcodone/APAP 10-325MG [[place] 10-325] 1 each PO Q6HR PRN 3 Days #12 tab 04/20/23 [Rx] cefUROXime axetiL [Ceftin] 500 mg PO BID 7 Days #14 tab 04/20/23 [Rx] Follow up Appointment(s)/Referral(s): Wilfred Jauregui DO [Doctor of Osteopathic Medicine] - 2 Weeks Andrei Moon MD [Primary Care Provider] - 1-2 days Patient Instructions/Handouts: Pelvic Fracture (GEN) Discharge Disposition: TRANSFER TO SNF/ECF
== END 2023-04-20 13:51 | DRG 536 ==
LOC: EC 12:47 → 5NMEDONC 17:53
PROVIDERS: ADMIT Internal Medicine; ATTEND Internal Medicine
DX: S32.592A Other specified fracture of left pubis, initial encounter for closed fracture (principal); S32.119A Unspecified Zone I fracture of sacrum, initial encounter for closed fracture; E87.1 Hypo-osmolality and hyponatremia; N39.0 Urinary tract infection, site not specified; I10 Essential (primary) hypertension; E03.9 Hypothyroidism, unspecified; E78.5 Hyperlipidemia, unspecified; N80.9 Endometriosis, unspecified; F17.210 Nicotine dependence, cigarettes, uncomplicated; Z79.890 Hormone replacement therapy; Z79.899 Other long term (current) drug therapy; W18.39XA Other fall on same level, initial encounter; Y93.9 Activity, unspecified; Y92.512 Supermarket, store or market as the place of occurrence of the external cause
CPT/HCPCS: 36415; 70450; 71045; 72125; 72192; 73502; 80048; 80053; 81001; 85025; 96361; 96374; 96375; 96376; 99285

== ENCOUNTER → 2023-12-24 | Outpatient (CLI) | payer MEDICARE ==
--- NOTE | 2023-12-25 10:02 | MM ---
Reason for Exam: Screening (asymptomatic). Last mammogram was performed 1 year(s) and 1 month(s) ago. Patient History: Menarche at age 12. Patient has no children. Postmenopausal. Hormonal Contraceptives for 1 month from age 39 until age 39. 08/29/2010, Benign Excisional Biopsy on the left side. 08/29/2010, Benign Excisional Biopsy on the left side. 08/12/2010, High risk Core Biopsy on the left side. 07/13/2010, High risk Core Biopsy on the left side. Paternal grandmother had breast cancer, age 70. Maternal aunt had breast cancer. Risk Values: Ibis 5 year model risk: 3.2%. NCI Lifetime model risk: 8.7%. Prior Study Comparison: 02/16/2016 Bilateral Screening Mammogram, [facility]. 04/26/2017 Bilateral Screening Mammogram, [facility]. 05/07/2018 Bilateral Screening Mammogram, [facility]. 10/27/2019 Bilateral Screening Mammogram, [facility]. 11/02/2020 Bilateral Screening Mammogram, [facility]. 11/29/2021 Bilateral MG screening mammo w CAD, [facility]. 11/30/2022 Bilateral MG 3D screening mammo w/cad, [facility]. Tissue Density: There are scattered areas of fibroglandular density. Findings: Analyzed By CAD. There is no suspicious group of microcalcifications or new suspicious mass in either breast. Overall Assessment: Negative, BI-RAD 1 Management: Screening Mammogram of both breasts in 1 year. . Patient should continue monthly self-breast exams. A clinical breast exam by your physician is recommended on an annual basis. This exam should not preclude additional follow-up of suspicious palpable abnormalities. Note on Ibis scores and lifetime risk: 1. A Ibis score greater than 3% is considered moderate risk. If this is the case, consider specialist referral to assess eligibility for a risk reducing agent. 2. If overall lifetime risk for the development of breast cancer is 20% or higher, the patient may qualify for future screening with alternating mammogram and breast MRI. [facility], , 12/25/2023 9:59 AM. Electronically signed and approved by: Ron Aguilera M.D. [facility]olog[facility]
== END | disposition home or self-care (01) ==
LOC: RADMAMWWP 12:29
PROVIDERS: ATTEND Internal Medicine
DX: Z12.31 Encounter for screening mammogram for malignant neoplasm of breast (principal); R92.323 Mammographic fibroglandular density, bilateral breasts; Z78.0 Asymptomatic menopausal state; Z80.3 Family history of malignant neoplasm of breast
CPT/HCPCS: 77063; 77067